=== PATIENT | female | born 1985 | race Two or more races ===

== ENCOUNTER 2020-09-08 09:39 | Emergency (ER) | payer OTHER ==
[~2020-09-08] VITALS: Ht 152.4 cm; Wt 58.1 kg
== END 2020-09-08 19:58 | disposition home or self-care (01) ==
LOC: ER 09:39
DX: K52.9 Noninfective gastroenteritis and colitis, unspecified (principal); D64.9 Anemia, unspecified; Z03.818 Encounter for observation for suspected exposure to other biological agents ruled out

== ENCOUNTER 2023-05-24 15:04 | Inpatient (IN) | payer OTHER ==
[~2023-05-24] VITALS: Ht 154.9 cm; Wt 55.8 kg
[2023-05-24] MEDS ORDERED: FAMOTIDINE40 MG PO (15:15)
== END 2023-05-26 14:15 | disposition home or self-care (01) | DRG 330 ==
LOC: ER 15:04 → SURG 21:54
PROVIDERS: Surgery; ADMIT Internal Medicine; ATTEND Internal Medicine
PROC: BW21ZZZ Computerized Tomography (CT Scan) of Abdomen and Pelvis (ICD-10-PCS; 2023-05-24)
PROC: 3E0F7SF Introduction of Other Gas into Respiratory Tract, Via Natural or Artificial Opening (ICD-10-PCS; 2023-05-24)
PROC: 0DTJ4ZZ Resection of Appendix, Percutaneous Endoscopic Approach (ICD-10-PCS; 2023-05-25)
PROC: 0DQH4ZZ Repair Cecum, Percutaneous Endoscopic Approach (ICD-10-PCS; principal; 2023-05-25 20:00)
DX: K35.80 Unspecified acute appendicitis (principal); K91.72 Accidental puncture and laceration of a digestive system organ or structure during other procedure; D72.829 Elevated white blood cell count, unspecified